=== PATIENT | female | born 1940 | race Caucasian/White ===

== ENCOUNTER → 2016-12-11 | Outpatient (CLI) | payer MEDICARE, OTHER ==
[~2016-12-11] MED LIST: ACTONEL PO; ANTACID PLUS A355 M1 PO; ASPIRIN81 M2 PO; ASPIRINEC PO; CALCIUM 600 + D1 TAB PO; CALCIUM1 TAB.CHEW PO; CELEBREX PO; D3 DOTS2000 UNIT PO; FLEXERIL10 MG PO; GUAIFENESI1 TAB.SR . PO; KEFLEX PO; LORTAB 7.5-5001 TAB PO; MOBIC15 MG PO; MULTI VITAMIN1 EACH; MULTI-VITAMIN1 EAC1 PO; MULTI-VITAMIN1 TAB PO; NORCO 7.5-3251 EACH PO; PERCOCET5/325 PO; PHENERGAN25 MG PO; PRAVACHOL10 MG; PRAVACHOL20 MG PO; PRAVASTATIN SOD40 MG PO; PRILOSEC PO; PRILOSEC20 M1 PO; PRILOSEC20 MG PO; PRILOSEC40 MG PO; SINGULAIR PO
--- NOTE | ~2016-12-11 | MY11 ---
[facility] A Service of [facility] RADIOLOGY TEXT RESULTS PATIENT: JERSON PETERS LOCATION: [facility] : 42 UNIT #: [id number] AGE: [address]: Jay Meade MD SEX: F ORDER DR: [id number] [address] [id number] [id number] MR#: [id number] Acc #: [id number] NAME: JERSON PETERS : 1940 SEX: F STUDY DATE/TIME: 12/11/2016 14:03 UNIT: [facility] ROOM: STUDY DESCRIPTION: MY Mammogram Screening Dig Jhonny Attending Physician: Jay Meade M.D. Referring Physician: Jay Meade M.D. Ordering Physician: Jay Meade M.D. Primary Care Physician: Jay Meade M.D. MEDICAL IMAGING REPORT This report is preliminary unless electronic signature is present. EXAM Digital screening mammogram. DATE OF EXAM 12/11/2016 LOCATION [facility]. HISTORY 76-year-old woman, status post right lumpectomy in 2006 with adjuvant radiation therapy. Personal and family history, sister age 50. Annual screen. COMPARISON Comparison mammograms date to 04/28/2006, with most recent 12/06/2015. TECHNIQUE Digital imaging of each breast was completed utilizing screening protocol. Review includes FDA-approved CAD device. FINDINGS Lumpectomy marker is placed on the right. Breast parenchyma is moderately dense with a generalized small nodular pattern noted. Postsurgical stellate lumpectomy bed is present on the right. There are a number of faint calcifications in the right breast parenchyma. These do not have suspicious characteristics however. I see no interval occurring breast mass. Benign appearance of the left breast is stable. IMPRESSION Benign mammogram. Stable post lumpectomy distortion right breast. Annual screening recommended. [facility] A Service of [facility] RADIOLOGY TEXT RESULTS PATIENT: JERSON PETERS LOCATION: [facility] : 42 UNIT #: [id number] AGE: [address]: Jay Meade MD SEX: F ORDER DR: Patients over the age of 40 are entered into a reminder system with target due date for the next mammogram. A result letter will also be sent to the patient. BIRADS: 2 Benign findings. Dictated by... Rupert Cunningham M.D. THIS IS AN ELECTRONICALLY VERIFIED REPORT Rupert Cunningham M.D. at 12/14/2016 8:09 AM NARENDRA/hugh TD: 12/11/2016 17:33 JOB #: [id number] MEDICAL IMAGING REPORT Page 1 of 1
== END | disposition home or self-care (01) ==
LOC: SMAM 13:10
DX: Z12.31 Encounter for screening mammogram for malignant neoplasm of breast (principal); Z85.3 Personal history of malignant neoplasm of breast; Z80.3 Family history of malignant neoplasm of breast; Z90.11 Acquired absence of right breast and nipple; Z92.3 Personal history of irradiation
CPT/HCPCS: G0202